=== PATIENT | female | born 1970 | race Caucasian/White ===

== ENCOUNTER 2019-03-04 11:27 | Outpatient (CLI) | payer BC | END 2019-03-04 11:28 | disposition critical access hospital (66) | LOC: EMS 11:27 | PROVIDERS: ATTEND Surgery | DX: R07.9 Chest pain, unspecified (principal); R51 Headache; R20.9 Unspecified disturbances of skin sensation | CPT/HCPCS: A0425; A0427 ==

== ENCOUNTER 2019-03-04 11:32 | Emergency (ER) | payer BC ==
--- NOTE | 2019-03-04 12:17 | XRAY Report ---
Reason: chest pain Procedure Date: 03/04/2019 Accession Number: [id number] / [id number] Procedure: XR - Chest 1 View X-Ray CPT Code: 82987 FULL RESULT: EXAM: CHEST RADIOGRAPHY EXAM DATE: 03/04/2019 11:43 AM. CLINICAL HISTORY: Chest pain. COMPARISON: None. TECHNIQUE: 1 view. FINDINGS: Lungs/Pleura: No focal opacities evident. No pleural effusion. No pneumothorax. Mediastinum: Within exam limitations, the cardiomediastinal contour is normal. Other: None. IMPRESSION: No acute cardiopulmonary abnormality. RADIA
[2019-03-04 12:18] LABS: BASOPHILS % (AUTO) 0.8 %; EOSINOPHILS % (AUTO) 0.6 %; HGB - HEMOGLOBIN 14.1 g/dL (12.0-16.0); LYMPHOCYTES # (AUTO) 1.9 10^3/uL (1.5-3.5); LYMPHOCYTES % (AUTO) 41.5 %; MEAN CORPUSCULAR HEMOGLOBIN 31.7 pg (27.0-31.0); MEAN CORPUSCULAR HGB CONC 32.7 g/dL (32.0-36.0); MEAN PLATELET VOLUME 9.3 fL (7.9-10.8); MONOCYTES # (AUTO) 0.3 10^3/uL (0.0-1.0); MONOCYTES % (AUTO) 7.5 %; NEUTROPHILS # (AUTO) 2.3 10^3/uL (1.5-6.6); NEUTROPHILS % (AUTO) 49.6 %; PLT - PLATELET COUNT 189 10^3/uL (130-450); RED BLOOD COUNT 4.44 10^6/uL (4.20-5.40); RED CELL DISTRIBUTION WIDTH 13.5 % (12.0-15.0); WHITE BLOOD COUNT 4.6 x10^3/uL (4.8-10.8)
[2019-03-04] MEDS ORDERED: METOPROLOL TARTRATE 50 MG TABLET PO STA ×2 (12:19→12:43)
--- NOTE | 2019-03-04 12:22 | ED Physician Documentation ---
PD HPI CHEST PAIN - Stated complaint Stated Complaint: CHEST PRESSURE - Chief complaint Chief Complaint: Cardiac - History obtained from History obtained from: Patient, EMS - History of Present Illness Timing - onset: Today (Around 1050 this morning she was talking on the phone and developed substernal chest burning that radiated to the jaw and neck. The severe part of it lasted about 15 minutes but then it was waxing and waning is a mild pressure after that. During the severe part she was short of breath but is not now. She noted some mild calf pain from running a few days ago but has not traveled recently, no swelling, no control or estrogens. No hemoptysis. She has no family history of heart disease. No personal history of heart disease. She took baby aspirin at home prior to arrival. EMS reported that the EKGs prehospital were dynamic, I am reviewing them, there are little to no dynamic changes that I can see, potentially there is very subtle ST depression, but I do not see anything I can really call dynamic.) Review of Systems Ten Systems: 10 systems reviewed and negative Constitutional: reports: Reviewed and negative Nose: denies: Rhinorrhea / runny nose, Congestion Throat: denies: Sore throat Cardiac: reports: Chest pain / pressure, Calf pain. denies: Palpitations, Pedal edema Respiratory: reports: Dyspnea. 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 : None HEENT: None Psych: Depression Musculoskeletal: None Derm: None - Past Surgical History Past Surgical History: Yes General: Appendectomy Ortho: Carpal Tunnel surgery /APPARATUS ENGINEERING TECHNOLOGIST: Endometrial ablation - Present Medications Home Medications: Ambulatory Orders Medication Instructions Recorded Confirmed Dextroamphetamine/Amphetamine 30 mg PO DAILY 03/04/19 03/04/19 [Adderall Xr 30 mg Capsule] Duloxetine HCl [Cymbalta] 60 mg PO DAILY 03/04/19 03/04/19 Levothyroxine [Synthroid] 75 mcg PO DAILY 03/04/19 03/04/19 - Allergies Allergies/Adverse Reactions: Allergies Allergy/AdvReac Type Severity Reaction Status Date / Time Sulfa (Sulfonamide Allergy Emesis Verified 03/04/19 11:58 Antibiotics) - Social History Does the pt smoke?: No Smoking Status: Never smoker Does the pt drink ETOH?: Yes - Family History Family history: reports: Non contributory - Immunizations Immunizations are current?: Yes PD ED PE NORMAL - Vitals Vital signs reviewed: Yes - General General: Alert and oriented X 3, No acute distress - HEENT HEENT: PERRL, EOMI - Neck Neck: Supple, no meningeal sign, No bony TTP - Cardiac Cardiac: RRR, No murmur - Respiratory Respiratory: No respiratory distress, Clear bilaterally - Abdomen Abdomen: Normal bowel sounds, Soft, Non tender - Back Back: No CVA TTP, No spinal TTP - Derm Derm: Normal color, Warm and dry - Extremities Extremities: No edema, No calf tenderness / cord - Neuro Neuro: Alert and oriented X 3, Normal speech Results - Vitals Vitals: Vital Signs - 24 hr 03/04/19 03/04/19 03/04/19 11:36 11:40 12:50 Temperature 36.6 C 36.5 C Heart Rate 68 83 Respiratory 13 23 Rate Blood Pressure 134/92 H Blood Pressure 134/92 H [Left] Blood Pressure 140/83 H [Right] O2 Saturation 100 100 03/04/19 03/04/19 03/04/19 13:00 14:03 15:16 Temperature Heart Rate 62 62 70 Respiratory 15 13 14 Rate Blood Pressure 131/84 H 120/73 142/70 H Blood Pressure [Left] Blood Pressure [Right] O2 Saturation 100 100 98 Oxygen O2 Source Room air - EKG (time done) 1137 Rate: Rate (enter#) Rhythm: NSR [place]: Normal Intervals: Normal IN QRS: Normal Ischemia: Non specific changes (Flat inferior T waves) Computer interpretation: Agree with computer 1220 Rate: Rate (enter#) (68) Rhythm: NSR [place]: Normal Intervals: Normal IN QRS: Normal Ischemia: No: ST elevation c/w ischemia, ST depression Compare to prior EKG: Unchanged from prior EKG (from 1137am) - Labs Labs: Laboratory Tests 03/04/19 03/04/19 03/04/19 12:08 12:08 12:08 WBC 4.6 L RBC 4.44 Hgb 14.1 Hct 43.1 MCV 97.0 MCH 31.7 H MCHC 32.7 RDW 13.5 Plt Count 189 MPV 9.3 Neut # (Auto) 2.3 Lymph # (Auto) 1.9 [place] # (Auto) 0.3 Eos # (Auto) 0.0 Baso # (Auto) 0.0 Absolute Nucleated RBC 0.00 Nucleated RBC % 0.0 Sodium 139 Potassium 3.4 L Chloride 107 Carbon Dioxide 18 L Anion Gap 14.0 H BUN 13 Creatinine 0.8 Estimated GFR (MDRD) 77 L Glucose 90 Calcium 9.1 Total Bilirubin 0.9 AST 25 ALT 16 Alkaline Phosphatase 28 L Troponin I < 0.04 Total Protein 7.1 Albumin 4.2 Globulin 2.9 Albumin/Globulin Ratio 1.4 Lipase 29 - Rads (name of study) 1v chest Radiology: EMP read contemporaneously (normal) PD MEDICAL DECISION MAKING - ED course ED course: This is 48-year-old woman with a somewhat concerning resolved chest pain episode. Biomarkers are negative and her EKG is nonischemic. Given her relatively young age and lack of risk factors she is an excellent candidate for coronary CTA and this was done after heart rate control and negative for coronary disease. Departure - Departure Disposition: 01 Home, Self Care Clinical Impression: Chest pain, Normal coronary arteries Condition: Good Record reviewed to determine appropriate education?: Yes Instructions: ED Chest Pain NonCardiac Comments: Call your doctor to arrange a follow-up appointment, make the next available appointment. In the interim, return anytime if worse or if new symptoms develop. Discharge Date/Time: 03/04/19 15:16
[2019-03-04 12:30] LABS: ALBUMIN 4.2 g/dL (3.2-5.5); ALBUMIN/GLOBULIN RATIO 1.4 (1.0-2.2); BILIRUBIN,TOTAL 0.9 mg/dL (0.2-1.0); CALCIUM 9.1 mg/dL (8.5-10.3); CREATININE 0.8 mg/dL (0.4-1.0); TOTAL PROTEIN 7.1 g/dL (6.7-8.2)
[2019-03-04] MEDS ORDERED: IOPAMIDOL-370 100 ML VIAL ONE (12:33)
[2019-03-04] MEDS ORDERED: METOPROLOL 5 MG/5 ML VIAL IVP STA (12:43)
[2019-03-04] MEDS ORDERED: NITROGLYCERIN SL 0.4 MG TABLET SL STA (12:45)
--- NOTE | 2019-03-04 15:04 | CT Report ---
Reason: chest pain Procedure Date: 03/04/2019 Accession Number: [id number] / [id number] Procedure: CT - ANG[facility] - CCTA W/WO CPT Code: 24925 FULL RESULT: EXAM: CORONARY ARTERY CTA EXAM DATE: 03/04/2019 02:16 PM. CLINICAL HISTORY: Chest Pain. COMPARISON: [facility] CCTA 03/04/2019 1:15 PM. TECHNIQUE: Axial sections were obtained through the heart following the intravenous administration of isovue 370 90mL. 3D reconstructions were obtained. In accordance with CT protocol optimization, one or more of the following dose reduction techniques were utilized for this exam: automated exposure control, adjustment of mA and/or KV based on patient size, or use of iterative reconstructive technique. FINDINGS: CALCIUM SCORE: The total calcium score is 0. DOMINANT ARTERY: Right coronary artery. LEFT MAIN: Conventional origin anatomy arising from the left coronary cusp. Normal caliber left main branch demonstrates no atherosclerotic disease or stenosis. The left main bifurcates into LAD and left circumflex branches. LEFT ANTERIOR DESCENDING: Normal caliber vessel demonstrates no atherosclerotic disease or stenosis. Small caliber first and second diagonal branches appear diffusely patent. LEFT CIRCUMFLEX: Normal caliber vessel demonstrates no atherosclerotic disease or stenosis. A small caliber first obtuse marginal branch arises just beyond the origin and appears relatively patent. Large caliber dominant second obtuse marginal branch arises in the midportion and also appears diffusely patent. RIGHT CORONARY ARTERY: Conventional origin anatomy arising from the right coronary cusp. Normal caliber vessel demonstrates no atherosclerotic disease or stenosis. RCA supplies the PDA and posterior-lateral branches which appear diffusely patent. THORACIC AORTA: Visualized portions of the thoracic aorta are normal in caliber with no acute aortic pathology identified. LEFT ATRIAL APPENDAGE: No filling defect is demonstrated. PULMONARY ARTERIES: No filling defect is identified in the visualized segments. CHEST/UPPER ABDOMEN: The visualized portions of the lungs, mediastinum, and upper abdomen are unremarkable. IMPRESSION: 1. Right dominant coronary circulation with normal coronary arteries. 2. Total calcium score of 0. RADIA
[2019-03-04] MEDS ORDERED: IOVERSOL 320 100 ML VIAL IVP ONE ×2 (15:11→15:17)
[2019-03-04 15:16] VITALS: BP 142/70
== END 2019-03-04 15:16 | disposition home or self-care (01) ==
LOC: ED 11:32
DX: R07.9 Chest pain, unspecified (principal)
CPT/HCPCS: 36415; 71045; 75572; 80053; 83690; 84484; 85025; 93005; 96374; 99283; 99284; A9270; Q9967

== ENCOUNTER 2020-01-07 17:13 | Outpatient (CLI) | payer BC | END 2020-01-07 17:14 | disposition home or self-care (01) | LOC: COV 17:13 | PROVIDERS: ATTEND Family Medicine | DX: R05 Cough (principal); R50.9 Fever, unspecified ==

== ENCOUNTER 2020-02-22 03:28 | Emergency (ER) | payer BC ==
--- NOTE | 2020-02-22 03:41 | ED Physician Documentation ---
History of Present Illness - Stated complaint Stated Complaint: L FOOT PX - History obtained from History obtained from: Patient (Patient is a 49-year-old female who presents to the ER at 3:30 in the morning with left toe pain after she fell down the stairs Yesterday. She reports she is able to ambulate she reports pain, swelling and bruising.) Review of Systems Constitutional: reports: Reviewed and negative Eyes: reports: Reviewed and negative Ears: reports: Reviewed and negative Nose: reports: Reviewed and negative Throat: reports: Reviewed and negative Cardiac: reports: Reviewed and negative Respiratory: reports: Reviewed and negative GI: reports: Reviewed and negative : reports: Reviewed and negative Skin: reports: Reviewed and negative Musculoskeletal: reports: Other (Left foot pain) Neurologic: reports: Reviewed and negative Psychiatric: reports: Reviewed and negative Endocrine: reports: Reviewed and negative Immunocompromised: reports: Reviewed and negative PD PAST MEDICAL HISTORY - Past Medical History Cardiovascular: None Respiratory: None Neuro: None Endocrine/Autoimmune: HyPOthyroidism GI: None SAFEKEEPING CLERK: None : None HEENT: None Psych: Depression Musculoskeletal: None Derm: None - Past Surgical History Past Surgical History: Yes General: Appendectomy Ortho: Carpal Tunnel surgery /SAFEKEEPING CLERK: Endometrial ablation - Present Medications Home Medications: Ambulatory Orders Medication Instructions Recorded Confirmed Duloxetine HCl [Cymbalta] 60 mg PO DAILY 03/04/19 02/22/20 Levothyroxine [Synthroid] 75 mcg PO DAILY 03/04/19 02/22/20 - Allergies Allergies/Adverse Reactions: Allergies Allergy/AdvReac Type Severity Reaction Status Date / Time Sulfa (Sulfonamide Allergy Emesis Verified 02/22/20 03:44 Antibiotics) - Social History Does the pt smoke?: No Smoking Status: Never smoker Does the pt drink ETOH?: Yes - Immunizations Immunizations are current?: Yes PD ED PE NORMAL - Vitals Vital signs reviewed: Yes - General General: Alert and oriented X 3, No acute distress, Well developed/nourished - HEENT HEENT: PERRL, Moist mucous membranes - Neck Neck: Supple, no meningeal sign - Cardiac Cardiac: RRR, No murmur, Strong equal pulses - Respiratory Respiratory: Clear bilaterally - Abdomen Abdomen: Normal bowel sounds, Soft, Non tender, Non distended - Derm Derm: Warm and dry - Extremities Extremities: No deformity, Other (The fifth digit on the left foot has a small amount of ecchymoses and small amount of swelling there is no pain over the base of the fifth metatarsal no gross instability of the foot compartments are soft neurovascular intact no obvious deformities or lacerations no bleeding sensations intact to light touch able to ambulate.) - Neuro Neuro: Alert and oriented X 3 - Psych Psych: Normal mood, Normal affect Results - Vitals Vitals: Vital Signs - 24 hr 02/22/20 03:40 Temperature 36.5 C Heart Rate 83 Respiratory 16 Rate Blood Pressure 117/80 O2 Saturation 97 Oxygen O2 Source Room air PD MEDICAL DECISION MAKING - ED course Complexity details: reviewed results, re-evaluated patient, considered differential (toe fracture of left foot, foot contusion. sprain/strain of left foot.), d/w patient Departure - Departure Disposition: 01 Home, Self Care Clinical Impression: Toe fracture, left Qualifiers: Encounter type: initial encounter Toe: lesser toe Fracture type: closed Phala nx: proximal Physeal involvement: unspecified Qualified Code(s): S92.512A - Displaced fracture of proximal phalanx of left lesser toe(s), initial encounter for closed fracture Condition: Stable Instructions: ED Fx Toe Closed Follow-Up: JAYSHREE DUDLEY MD [Primary Care Provider] - [facility] [Provider Group] Comments: follow up with your either podiatry or orthopedic surgery. keep toe protected and use post op shoe is needed.
[2020-02-22 03:44] VITALS: BP 117/80
--- NOTE | 2020-02-22 04:28 | XRAY Report ---
Reason: pain and swelling Procedure Date: 02/22/2020 Accession Number: [id number] / [id number] Procedure: XR - Foot 3 View LT CPT Code: Final Report FULL RESULT: EXAM: LEFT FOOT RADIOGRAPHY EXAM DATE: 02/22/2020 04:13 AM. CLINICAL HISTORY: Pain and swelling. COMPARISON: None. TECHNIQUE: 3 views. FINDINGS: Bones: Intra-articular fracture at the base of the fifth proximal phalanx. No other acute fracture seen. Plantar calcaneal osteophyte. Joints: No dislocation seen. Joints appear intact. Soft Tissues: Mild soft tissue swelling. IMPRESSION: 1. Intra-articular fracture at the base of the fifth proximal phalanx. RADIA
== END 2020-02-22 04:44 | disposition home or self-care (01) ==
LOC: ED 03:28
DX: S92.512A Displaced fracture of proximal phalanx of left lesser toe(s), initial encounter for closed fracture (principal); W10.9XXA Fall (on) (from) unspecified stairs and steps, initial encounter; Y93.01 Activity, walking, marching and hiking
CPT/HCPCS: 99282; 99283

== ENCOUNTER 2020-07-29 07:16 | Outpatient (CLI) | payer BC ==
[2020-07-29 07:37] LABS: EOSINOPHILS # (AUTO) 0.1 10^3/uL (0.0-0.7); EOSINOPHILS % (AUTO) 1.8 %; HGB - HEMOGLOBIN 13.3 g/dL (12.0-16.0); LYMPHOCYTES # (AUTO) 1.5 10^3/uL (1.5-3.5); LYMPHOCYTES % (AUTO) 37.4 %; MEAN CORPUSCULAR HEMOGLOBIN 31.7 pg (27.0-31.0); MEAN CORPUSCULAR HGB CONC 32.8 g/dL (32.0-36.0); MEAN CORPUSCULAR VOLUME 96.7 fL (81.0-99.0); MEAN PLATELET VOLUME 10.5 fL (7.9-10.8); MONOCYTES # (AUTO) 0.5 10^3/uL (0.0-1.0); MONOCYTES % (AUTO) 12.9 %; NEUTROPHILS # (AUTO) 1.8 10^3/uL (1.5-6.6); NEUTROPHILS % (AUTO) 45.6 %; PLT - PLATELET COUNT 215 10^3/uL (130-450); RED BLOOD COUNT 4.19 10^6/uL (4.20-5.40); RED CELL DISTRIBUTION WIDTH 12.3 % (12.0-15.0)
[2020-07-29 07:44] LABS: ALBUMIN 4.2 g/dL (3.2-5.5); ALBUMIN/GLOBULIN RATIO 1.6 (1.0-2.2); ALKALINE PHOSPHATASE 32 IU/L (42-121); ALT ALANINE AMINOTRANSFERASE 15 IU/L (10-60); AST ASPARTATE AMINOTRANSFERASE 17 IU/L (10-42); BILIRUBIN,TOTAL 0.7 mg/dL (0.2-1.0); BUN - BLOOD UREA NITROGEN 17 mg/dL (6-20); CALCIUM 9.1 mg/dL (8.5-10.3); CARBON DIOXIDE - CO2 25 mmol/L (21-32); CHLORIDE 103 mmol/L (101-111); CHOL/HDL RATIO 2.6 (<4.4); CHOLESTEROL 201 mg/dL; CREATININE 0.9 mg/dL (0.4-1.0); GLUCOSE 120 mg/dL (70-100); HDL CHOLESTEROL 78 mg/dL; LDL CHOLESTEROL,CALCULATED 115 mg/dL; LDL/HDL RATIO 1.5 (<4.4); SODIUM 138 mmol/L (135-145); TOTAL PROTEIN 6.8 g/dL (6.7-8.2); VLDL CHOLESTEROL 8 mg/dL
[2020-07-29 20:27] LABS: HEMOGLOBIN A1c% 5.5 % (4.27-6.07)
== END 2020-07-29 07:17 | disposition home or self-care (01) ==
LOC: LAB 07:16
PROVIDERS: ATTEND Nurse Practitioner
DX: Z00.00 Encounter for general adult medical examination without abnormal findings (principal); R73.01 Impaired fasting glucose; E03.9 Hypothyroidism, unspecified; Z13.220 Encounter for screening for lipoid disorders; Z13.228 Encounter for screening for other metabolic disorders
CPT/HCPCS: 36415; 80053; 80061; 83036; 83721; 84443; 85025

== ENCOUNTER 2020-11-02 15:48 | Outpatient (CLI) | payer BC ==
--- NOTE | 2020-11-14 11:19 | Mammography Report ---
BILATERAL DIGITAL SCREENING MAMMOGRAM 3D/2D: 11/02/2020 CLINICAL: Routine screening. No prior exams were available for comparison. There are scattered fibroglandular elements in both br easts. There is possible architectural distortion in the right breast middle depth lateral region seen on th e craniocaudal view only. No other significant masses, calcifications, or other findings are seen in either breast. IMPRESSION: INCOMPLETE: NEEDS ADDITIONAL IMAGING EVALUATION The possible architectural distortion in the right breast is indeterminate. Additional views with po ssible ultrasound are recommended. This exam was interpreted at Station ID: [id number]. NOTE: For mammograms, a report in lay terms will be sent to the patient. Approximately 15% of breast malignancies will not be visualized mammographically. In the management of a palpable breast mass, a negative mammogram must not discourage biopsy of a clinically suspicious lesion. Electronically Signed By: Brent Dominguez M.D. jr/:11/11/2020 10:07:32 ACR BI-RADS Category 0: Incomplete 3340F PARENCHYMAL PATTERN: (A) - The breast(s) demonstrate(s) scattered fibroglandular densities. BI-RADS CATEGORY: (0) - 0 Mammo and [place] [id number] Immediate follow-up LATERALITY: (B)
== END 2020-11-02 15:49 | disposition home or self-care (01) ==
LOC: EEVIPCON → DI.N 15:48
PROVIDERS: ATTEND Nurse Practitioner
DX: Z12.31 Encounter for screening mammogram for malignant neoplasm of breast (principal); N64.89 Other specified disorders of breast

== ENCOUNTER 2020-12-06 09:25 | Outpatient (CLI) | payer BC ==
--- NOTE | 2020-12-06 13:38 | Mammography Report ---
UNILATERAL RIGHT DIGITAL DIAGNOSTIC MAMMOGRAM 3D/2D: 12/06/2020 CLINICAL: Additional evaluation requested from prior study. Short term follow up of the right breast. Short term follow up of the right breast. Comparison is made to exam dated: 11/02/2020 mammogram - [facility]. There are sca ttered fibroglandular elements in right breast. There is possible architectural distortion in the right breast middle depth lateral region seen on th e craniocaudal view only. This is not seen in additional views. No other significant masses or calcifications are seen in the breast. IMPRESSION: INCOMPLETE: NEEDS ADDITIONAL IMAGING EVALUATION The possible architectural distortion in the right breast is indeterminate. An ultrasound is recomme nded. This exam was interpreted at Station ID: [id number]. NOTE: For mammograms, a report in lay terms will be sent to the patient. Approximately 15% of breast malignancies will not be visualized mammographically. In the management of a palpable breast mass, a negative mammogram must not discourage biopsy of a clinically suspicious lesion. Electronically Signed By: Francisco Wright acr/:12/06/2020 10:39:14 ACR BI-RADS Category 0: Incomplete 3340F PARENCHYMAL PATTERN: (A) - The breast(s) demonstrate(s) scattered fibroglandular densities. BI-RADS CATEGORY: (0) - 0 Ultrasound [id number] Immediate follow-up LATERALITY: (B)
--- NOTE | 2020-12-06 13:38 | Ultrasound Report ---
LIMITED ULTRASOUND OF RIGHT BREAST: 12/06/2020 CLINICAL: Patient returns today to evaluate a focal asymmetry in the right breast. Comparison is made to exams dated: 12/06/2020 mammogram and 11/02/2020 mammogram - [facility]. Ultrasound of the right breast lower inner quadrant was performed. IMPRESSION: NEGATIVE There is no sonographic evidence of malignancy. Return to annual mammogram screening schedule is recommended. This exam was interpreted at Station ID: [id number]. Electronically Signed By: Francisco Wright acr/:12/06/2020 10:39:49 Ultrasound BI-RADS: 1 Negative BI-RADS CATEGORY: (1) - 1 Mammogram [id number] return to screening LATERALITY: (B)
== END 2020-12-06 09:26 | disposition home or self-care (01) ==
LOC: DI 09:25
PROVIDERS: ATTEND Nurse Practitioner
DX: R92.8 Other abnormal and inconclusive findings on diagnostic imaging of breast (principal)

== ENCOUNTER 2022-02-27 15:09 | Outpatient (CLI) | payer BC ==
--- NOTE | 2022-02-28 13:40 | Mammography Report ---
BILATERAL DIGITAL SCREENING MAMMOGRAM 3D/2D: 02/27/2022 CLINICAL: Routine screening. Comparison is made to exams dated: 12/06/2020 ultrasound, 12/06/2020 mammogram, and 11/02/2020 mammogra m - [facility]. The tissue of both breasts is extremely dense, which lowers the se nsitivity of mammography. No significant masses, calcifications, or other findings are seen in either breast. There has been no significant interval change. IMPRESSION: NEGATIVE There is no mammographic evidence of malignancy. A 1 year screening mammogram is recommended. This exam was interpreted at Station ID: [id number]. NOTE: For mammograms, a report in lay terms will be sent to the patient. Approximately 15% of breast malignancies will not be visualized mammographically. In the management of a palpable breast mass, a negative mammogram must not discourage biopsy of a clinically suspicious lesion. Electronically Signed By: Sadi Rae M.D. aty/penrad:02/28/2022 11:22:33 ACR BI-RADS Category 1: Negative 3341F PARENCHYMAL PATTERN: (VD) - The breast(s) demonstrate(s) extremely dense parenchyma, limiting the sen sitivity of mammography. BI-RADS CATEGORY: (1) - 1 RECOMMENDATION: (ANNUAL) - Recommend routine annual screening mammography. [id number] 1 year screening LATERALITY: (B)
== END 2022-02-27 15:10 | disposition home or self-care (01) ==
LOC: DI.N 15:09
DX: Z12.31 Encounter for screening mammogram for malignant neoplasm of breast (principal)

== ENCOUNTER 2022-12-18 10:24 | Outpatient (CLI) | payer BC ==
--- NOTE | 2022-12-19 14:11 | Ultrasound Report ---
LIMITED ULTRASOUND OF LEFT BREAST: 12/18/2022 CLINICAL: Palpable left breast lump. Comparison is made to exams dated: 02/27/2022 mammogram, 12/06/2020 ultrasound, 12/06/2020 mammogram, a nd 11/02/2020 mammogram - [facility]. Color flow ultrasound of the left breast 3 o'clock region was performed. Hernandez scale images of the r eal-time examination were reviewed. IMPRESSION: NEGATIVE There is no sonographic evidence of malignancy. A 1 year screening mammogram is recommended. Future imaging is recommended as follows: 02/28/2023 sc reening mammogram. This exam was interpreted at Station ID: [id number]. Electronically Signed By: Brent Dominguez M.D., jr/rebecca:12/18/2022 13:45:59 Ultrasound BI-RADS: 1 Negative BI-RADS CATEGORY: (1) - 1 Mammogram [id number] 1 year screening LATERALITY: (B)
--- NOTE | 2022-12-19 14:11 | Mammography Report ---
BILATERAL DIGITAL DIAGNOSTIC MAMMOGRAM 3D/2D: 12/18/2022 CLINICAL: Palpable left breast lump. Due for bilateral imaging. Comparison is made to exams dated: 02/27/2022 mammogram, 12/06/2020 ultrasound, 12/06/2020 mammogram, a nd 11/02/2020 mammogram - [facility]. Both breasts are extremely dense, which lowers the sensitivity of mammography (category d />75% gland ular tissue). No significant masses, calcifications, or other findings are seen in either breast. IMPRESSION: INCOMPLETE: NEEDS ADDITIONAL IMAGING EVALUATION No mass or suspicious finding. Ultrasound of the reportedly palpable area of concern in the left fer st will be performed. This exam was interpreted at Station ID: [id number]. NOTE: For mammograms, a report in lay terms will be sent to the patient. Approximately 15% of breast malignancies will not be visualized mammographically. In the management of a palpable breast mass, a negative mammogram must not discourage biopsy of a clinically suspicious lesion. Electronically Signed By: Brent Dominguez M.D. jr/:12/18/2022 13:45:45 ACR BI-RADS Category 0: Incomplete 3340F PARENCHYMAL PATTERN: (VD) - The breast(s) demonstrate(s) extremely dense parenchyma, limiting the sen sitivity of mammography. BI-RADS CATEGORY: (0) - 0 Ultrasound [id number] Immediate follow-up LATERALITY: (B)
== END 2022-12-18 10:25 | disposition home or self-care (01) ==
LOC: DI 10:24
PROVIDERS: ATTEND Naturopath
DX: N63.20 Unspecified lump in the left breast, unspecified quadrant (principal)

== ENCOUNTER 2023-01-01 08:04 | Outpatient (CLI) | payer BC ==
[2023-01-01 08:16] LABS: BASOPHILS % (AUTO) 0.6 %; EOSINOPHILS # (AUTO) 0.1 10^3/uL (0.0-0.7); HCT - HEMATOCRIT 43.2 % (37.0-47.0); HGB - HEMOGLOBIN 14.4 g/dL (12.0-16.0); LYMPHOCYTES # (AUTO) 1.6 10^3/uL (1.5-3.5); LYMPHOCYTES % (AUTO) 32.6 %; MEAN CORPUSCULAR HEMOGLOBIN 31.6 pg (27.0-31.0); MEAN CORPUSCULAR HGB CONC 33.3 g/dL (32.0-36.0); MEAN CORPUSCULAR VOLUME 94.9 fL (81.0-99.0); MEAN PLATELET VOLUME 10.5 fL (7.9-10.8); MONOCYTES # (AUTO) 0.4 10^3/uL (0.0-1.0); MONOCYTES % (AUTO) 8.9 %; NEUTROPHILS # (AUTO) 2.8 10^3/uL (1.5-6.6); NEUTROPHILS % (AUTO) 56.7 %; PLT - PLATELET COUNT 199 10^3/uL (130-450); RED BLOOD COUNT 4.55 10^6/uL (4.20-5.40); RED CELL DISTRIBUTION WIDTH 11.9 % (12.0-15.0); WHITE BLOOD COUNT 4.9 x10^3/uL (4.8-10.8)
[2023-01-01 08:37] LABS: ALBUMIN 4.3 g/dL (3.2-5.5); ALBUMIN/GLOBULIN RATIO 1.4 (1.0-2.2); ALKALINE PHOSPHATASE 34 IU/L (42-121); ALT ALANINE AMINOTRANSFERASE 17 IU/L (10-60); AST ASPARTATE AMINOTRANSFERASE 21 IU/L (10-42); BILIRUBIN,TOTAL 0.3 mg/dL (0.2-1.0); BUN - BLOOD UREA NITROGEN 17 mg/dL (6-20); CALCIUM 9.3 mg/dL (8.5-10.3); CARBON DIOXIDE - CO2 30 mmol/L (21-32); CHLORIDE 98 mmol/L (101-111); CHOL/HDL RATIO 2.9 (<4.4); CHOLESTEROL 243 mg/dL; CREATININE 0.9 mg/dL (0.4-1.0); GFR - MDRD 66 (>89); GLUCOSE 126 mg/dL (70-100); HDL CHOLESTEROL 85 mg/dL; POTASSIUM 4.1 mmol/L (3.5-5.0); SODIUM 138 mmol/L (135-145); TOTAL PROTEIN 7.3 g/dL (6.7-8.2); TRIGLYCERIDES 38 mg/dL
== END 2023-01-01 08:05 | disposition home or self-care (01) ==
LOC: LAB 08:04
PROVIDERS: ATTEND Naturopath
DX: Z00.00 Encounter for general adult medical examination without abnormal findings (principal); E03.9 Hypothyroidism, unspecified
CPT/HCPCS: 36415; 80053; 80061; 83721; 84443; 85025

== ENCOUNTER 2023-03-07 10:19 | Outpatient (CLI) | payer BC ==
[2023-03-07 10:46] LABS: ALBUMIN 4.5 g/dL (3.2-5.5); ALBUMIN/GLOBULIN RATIO 1.6 (1.0-2.2); ALKALINE PHOSPHATASE 32 IU/L (42-121); ALT ALANINE AMINOTRANSFERASE 17 IU/L (10-60); AST ASPARTATE AMINOTRANSFERASE 21 IU/L (10-42); BILIRUBIN,TOTAL 0.7 mg/dL (0.2-1.0); BUN - BLOOD UREA NITROGEN 10 mg/dL (6-20); CALCIUM 9.3 mg/dL (8.5-10.3); CARBON DIOXIDE - CO2 29 mmol/L (21-32); CHLORIDE 99 mmol/L (101-111); CHOL/HDL RATIO 2.3 (<4.4); CHOLESTEROL 237 mg/dL; CREATININE 0.8 mg/dL (0.4-1.0); GFR - MDRD 75 (>89); GLUCOSE 106 mg/dL (70-100); HDL CHOLESTEROL 101 mg/dL; LDL CHOLESTEROL,CALCULATED 125 mg/dL; LDL/HDL RATIO 1.2 (<4.4); POTASSIUM 3.4 mmol/L (3.5-5.0); SODIUM 138 mmol/L (135-145); TOTAL PROTEIN 7.3 g/dL (6.7-8.2); TRIGLYCERIDES 56 mg/dL; VLDL CHOLESTEROL 11 mg/dL
[2023-03-07 12:46] LABS: ESTIMATED AVERAGE GLUCOSE 114 mg/dL (70-100); HEMOGLOBIN A1c% 5.6 % (4.27-6.07)
== END 2023-03-07 10:20 | disposition home or self-care (01) ==
LOC: LAB 10:19
PROVIDERS: ATTEND Nurse Practitioner
DX: R60.0 Localized edema (principal); Z13.220 Encounter for screening for lipoid disorders; Z13.1 Encounter for screening for diabetes mellitus
CPT/HCPCS: 36415; 80053; 80061; 83036; 83721

== ENCOUNTER 2023-07-28 07:33 | Outpatient (CLI) | payer BC ==
--- NOTE | 2023-07-28 15:19 | Ultrasound Report ---
PROCEDURE: Pelvic w/Transvaginal INDICATIONS: POSTMENOPAUSAL BLEEDING TECHNIQUE: Real-time scanning was performed of the pelvic organs, with image documentation. Additional endovagi nal scanning was necessary due to incomplete visualization of the adnexal and endometrial structures by transabdominal scanning. COMPARISON: None. FINDINGS: Uterus: Uterus is anteverted and normal in size at 7.7 x 4 x 4.1 cm. The myometrium is heterogeneou s. The endometrium measures 4 mm in combined thickness with trace endometrial fluid. Left posterior intramural isoechoic mass measuring 1.8 x 1.8 x 1.6 cm with no significant internal vascularity. The visualized cervix and vagina are within normal limits. Ovaries: The right ovary measures 2.3 x 1.1 x 0.9 cm, with a calculated ovarian volume of 1.22 cc. The left ovary is not well seen secondary to bowel gas and measures approximately 1.3 x 1 x 1.1 cm, w ith a calculated ovarian volume of 0.75 cc. The ovaries have a normal sonographic appearance. Less than 12 follicles can be seen in each ovary. No adnexal masses are seen. No cystic lesions measuring greater than 3 cm. Other: No pathologic free abdominal or pelvic fluid. IMPRESSION: 1. Endometrium measures 4 mm in combined thickness with trace endometrial fluid. 2. Myometrium is heterogeneous. Left posterior intramural fibroid measuring 1.8 x 1.8 x 1.6 cm. 3. Left ovary is not well seen secondary to bowel gas. Right ovary is unremarkable. Reviewed by: Consuelo Dutta MD on 07/28/2023 3:18 PM PDT Approved by: Consuelo Dutta MD on 07/28/2023 3:18 PM PDT Station ID: [id number]
== END 2023-07-28 07:34 | disposition home or self-care (01) ==
LOC: DI 07:33
PROVIDERS: ATTEND Nurse Practitioner
DX: D25.1 Intramural leiomyoma of uterus (principal); N95.0 Postmenopausal bleeding

== ENCOUNTER 2024-02-10 08:19 | Outpatient (CLI) | payer BC ==
[2024-02-10 09:06] LABS: ALBUMIN 4.5 g/dL (3.2-5.5); ALBUMIN/GLOBULIN RATIO 2.3 (1.0-2.2); ALKALINE PHOSPHATASE 31 IU/L (42-121); ALT ALANINE AMINOTRANSFERASE 18 IU/L (10-60); AST ASPARTATE AMINOTRANSFERASE 20 IU/L (10-42); BILIRUBIN,TOTAL 0.5 mg/dL (0.2-1.0); BUN - BLOOD UREA NITROGEN 29 mg/dL (6-20); CALCIUM 9.6 mg/dL (8.5-10.3); CARBON DIOXIDE - CO2 29 mmol/L (21-32); CHLORIDE 102 mmol/L (101-111); CHOL/HDL RATIO 2.5 (<4.4); CHOLESTEROL 198 mg/dL; GFR - MDRD 58 (>89); GLUCOSE 102 mg/dL (74-104); HDL CHOLESTEROL 80 mg/dL; LDL CHOLESTEROL,CALCULATED 108 mg/dL; LDL/HDL RATIO 1.4 (<4.4); POTASSIUM 4.2 mmol/L (3.5-4.5); SODIUM 137 mmol/L (135-145); TOTAL PROTEIN 6.5 g/dL (6.4-8.9); TRIGLYCERIDES 51 mg/dL (48-352); VLDL CHOLESTEROL 10 mg/dL
[2024-02-10 10:00] LABS: ESTIMATED AVERAGE GLUCOSE 114 mg/dL (70-100); HEMOGLOBIN A1c% 5.6 % (4.27-6.07)
== END 2024-02-10 08:20 | disposition home or self-care (01) ==
LOC: LAB 08:19
PROVIDERS: ATTEND Nurse Practitioner
DX: R60.0 Localized edema (principal)
CPT/HCPCS: 36415; 80053; 80061; 83036; 83721

== ENCOUNTER 2024-05-15 13:08 | Outpatient (CLI) | payer BC ==
--- NOTE | 2024-05-18 08:24 | Mammography Report ---
BILATERAL DIGITAL SCREENING MAMMOGRAM 3D/2D: 05/15/2024 CLINICAL: Routine screening. Comparison is made to exams dated: 12/18/2022 mammogram, 02/27/2022 mammogram, and 11/02/2020 mammogram - [facility]. Both breasts are extremely dense, which lowers the sensitivity of mammography (category d />75% gland ular tissue). No significant masses, calcifications, or other findings are seen in either breast. There has been no significant interval change. IMPRESSION: NEGATIVE There is no mammographic evidence of malignancy. A 1 year screening mammogram is recommended. Based on the Tyrer Cuzick model (a risk assessment model) the patient's lifetime risk is 15.6% and he r 10 year risk is 4.3%. According to the ACR, ACS, and NCCN guidelines, an annual breast MRI exam andres ng with mammogram is recommended if the patient's lifetime risk is 20% or greater. This exam was interpreted at Station ID: [id number]. NOTE: For mammograms, a report in lay terms will be sent to the patient. Approximately 15% of breast malignancies will not be visualized mammographically. In the management of a palpable breast mass, a negative mammogram must not discourage biopsy of a clinically suspicious lesion. Electronically Signed By: Deepak paige/rebecca:05/15/2024 16:47:03 letter sent: No_Letter ACR BI-RADS Category 1: Negative 3341F PARENCHYMAL PATTERN: (VD) - The breast(s) demonstrate(s) extremely dense parenchyma, limiting the sen sitivity of mammography. BI-RADS CATEGORY: (1) - 1 RECOMMENDATION: (ANNUAL) - Recommend routine annual screening mammography. [id number] 1 year screening LATERALITY: (B)
== END 2024-05-15 13:09 | disposition home or self-care (01) ==
LOC: DI 13:08
DX: Z12.31 Encounter for screening mammogram for malignant neoplasm of breast (principal); R92.343 Mammographic extreme density, bilateral breasts

== ENCOUNTER 2024-07-05 08:29 | Emergency (ER) | payer BC ==
--- NOTE | 2024-07-05 08:43 | ED Physician Documentation ---
PD HPI LOWER EXT INJURY - Stated complaint Stated Complaint: LT FOOT SWELLING/PX - History obtained from History obtained from: Patient (She was riding her horse yesterday and it reared up and fell on her left foot. She has mild pain in the area of the distal medial left foot. No other injuries.) PD PAST MEDICAL HISTORY - Past Medical History Cardiovascular: None Respiratory: None Neuro: None Endocrine/Autoimmune: HyPOthyroidism GI: None REGISTERED NURSING PROFESSOR: None : None HEENT: None Psych: Depression Musculoskeletal: None Derm: None - Past Surgical History Past Surgical History: Yes General: Appendectomy Ortho: Carpal Tunnel surgery /REGISTERED NURSING PROFESSOR: Endometrial ablation - Present Medications Home Medications: Ambulatory Orders Medication Instructions Recorded Confirmed Duloxetine HCl [Cymbalta] 60 mg PO DAILY 03/04/19 02/22/20 Levothyroxine [Synthroid] 75 mcg PO DAILY 03/04/19 02/22/20 - Allergies Allergies/Adverse Reactions: Allergies Allergy/AdvReac Type Severity Reaction Status Date / Time Sulfa (Sulfonamide Allergy Emesis Verified 07/05/24 08:42 Antibiotics) - Social History Does the pt smoke?: No Smoking Status: Never smoker Does the pt drink ETOH?: Yes - Immunizations Immunizations are current?: Yes PD ED PE NORMAL - Vitals Vital signs reviewed: Yes - General General: Alert and oriented X 3, No acute distress - Extremities Extremities: Other (Mild TTP L distal 1st-3rd MTs. No deformity.) Results - Vitals Vitals: Vital Signs - 24 hr 07/05/24 08:42 Temperature 36.5 C Heart Rate 78 Respiratory 18 Rate Blood Pressure 121/91 H O2 Saturation 100 Oxygen O2 Source Room air - Rads (name of study) Three-view x-ray left foot was negative for acute bony injury. She did have a heel spur. Relevant Findings:: Final report received, EMP independent interpretation of test PD Medical Decision Making - ED course ED course: Foot injury consistent with toe sprain and metatarsal sprain. Placed in a fracture shoe. Radiography negative. Departure - Departure Disposition: 01 Home, Self Care Clinical Impression: Sprain of foot, left Condition: Good Record reviewed to determine appropriate education?: Yes Instructions: ED Sprain Foot Comments: As discussed, I do not see any abnormalities that are acute on the x-ray. You do have a small heel spur, but that would not be related to anything that happened yesterday, more of a chronic issue. Recheck with your doctor in a week if not better. Return for new or worsening symptoms. Can take Tylenol and/or ibuprofen as needed for pain. Forms: PCP List Discharge Date/Time: 07/05/24 09:39
[2024-07-05 08:47] VITALS: BP 121/91; O2SAT 100
--- NOTE | 2024-07-05 09:59 | XRAY Report ---
PROCEDURE: Foot 3+V LT INDICATIONS: foot inj TECHNIQUE: 3 views of the foot were acquired. COMPARISON: None. FINDINGS: Bones: No fractures or dislocations. No suspicious bony lesions. Plantar calcaneal spur. Soft tissues: No tibiotalar joint effusion. Achilles tendon appears normal. IMPRESSION: No acute bony abnormality. Reviewed by: Sravan Dominguez MD on 07/05/2024 8:57 AM [facility] Approved by: Sravan Dominguez MD on 07/05/2024 8:57 AM [facility] Station ID: [id number]
== END 2024-07-05 09:39 | disposition home or self-care (01) ==
LOC: ED 08:29
DX: S93.602A Unspecified sprain of left foot, initial encounter (principal); V80.010A Animal-rider injured by fall from or being thrown from horse in noncollision accident, initial encounter; Y93.52 Activity, horseback riding; E03.9 Hypothyroidism, unspecified; Z79.899 Other long term (current) drug therapy
CPT/HCPCS: 99283